=== PATIENT | male | born 2000 | race Caucasian/White ===

== ENCOUNTER 2023-08-14 23:14 | Emergency (ER) | payer BC, SELFPAY ==
[2023-08-14 23:22] VITALS: BP 135/97; PULSE 63; RESP 18; TEMP 36.6; O2SAT 100; BMI 29.3
--- NOTE | 2023-08-14 23:29 | ED.GENADULT ---
HPI - General Adult General Chief complaint: Chest Pain Stated complaint: chest pain Time Seen by Provider: 08/14/23 23:35 History of Present Illness HPI narrative: 1 hour CP, mid chest, denies SOB. pt states he thinks its possibly acid reflux. states took milk of mag at home and no relief. pt states he used to go to ER x2 a year for this stating mix of anxiety and acid reflux. Pt seen [facility] and started on antacid and hasnt been to ER for 2 years. 23-year-old young man presenting to the emergency department concern of chest pain. He says ?I know what it is?. Is quite certain that it is esophageal reflux. Began about an hour prior to arrival in the emergency department. He apparently woke from sleep vomiting and with this pain. On triage denies shortness of breath but when I inquire he has been feeling a little short of breath he. He did try treatment with milk magnesium but this has not helped. He is not really nauseated now. Notes a history of recurrent visits to the emergency department being diagnosed with the combination of anxiety and acid reflux. Ultimately but 2 years ago saw [facility] in initiated on famotidine which he takes twice daily and has been quite helpful. Has not needed an ER visit since. There was discussion apparently of doing an EGD but this was ultimately not done/deferred. Otherwise within usual state of health. Denies a history of cardiovascular disease. He does not drink alcohol. Denies sleep apnea. Denies constipation. Related Data Home Medications Medication Instructions Recorded Confirmed dicyclomine PO 08/14/23 famotidine PO 08/14/23 sertraline .ROUTE 08/14/23 Previous Rx's Medication Instructions Recorded lidocaine HCl 2 % mucosal solution 10 ml PO TID PRN hearburn #100 mL 08/15/23 ondansetron 4 mg disintegrating 4 mg PO DAILY PRN nausea/vomiting 08/15/23 tablet #12 tabs Allergies Allergy/AdvReac Type Severity Reaction Status Date / Time metoclopramide AdvReac Verified 08/14/23 23:55 Review of Systems Status of ROS: Reports: 6 or more systems reviewed and unremarkable except as noted in History and below PFSH PFSH Social History Smoking Status: Never smoker Second hand tobacco smoke exposure: No How often do you have a drink containing alcohol: never AUDIT-C Alcohol total score: 0 Non-prescribed substance use: denies use Exam Narrative: Exam Narrative: Pleasant. Easily conversant. Breathing easily. Oropharynx is unremarkable. No stridor. Heart in regular rate and rhythm. Abdomen is soft with normoactive bowel sounds. Overweight. Quite tender in the epigastrium. No particular tenderness in the right upper quadrant certainly absent Villavicencio's. No tenderness in the left upper abdomen. Eyes are injected. Mildly congested in the nasopharynx. Const: Vital Signs, click to edit/add: Vital Signs - 24 hr 08/14/23 23:22 08/14/23 23:45 08/15/23 00:46 Temperature 97.8 F 98.0 F Pulse Rate [Pulse Oximeter] 63 68 Respiratory Rate 18 18 Blood Pressure [Le ft Upper Arm] 135/97 H 125/84 Pulse Oximetry 100 99 99 Oxygen Delivery Me thod Room Air Room Air 08/15/23 00:47 Temperature 98.0 F Pulse Rate [Pulse Oximeter] 68 Respiratory Rate 18 Blood Pressure [Le ft Upper Arm] 125/84 Pulse Oximetry Oxygen Delivery Me thod Documenting provider has reviewed patient's vital signs: yes Course Vital Signs Vital signs: Initial Vital Signs Respiratory Effort Normal, Spontaneous, Non-Labored 08/14/23 23:15 Respiratory Depth Normal 08/14/23 23:15 Respiratory Pattern Normal 08/14/23 23:15 Vital Signs Temperature 97.8 F 08/14/23 23:22 Pulse Rate 63 08/14/23 23:22 Respiratory Rate 18 08/14/23 23:22 Blood Pressure 135/97 H 08/14/23 23:22 Pulse Oximetry 100 08/14/23 23:22 Oxygen Delivery Method Room Air 08/14/23 23:22 Temperature 98.0 F 08/15/23 00:47 Pulse Rate 68 08/15/23 00:47 Respiratory Rate 18 08/15/23 00:47 Blood Pressure 125/84 08/15/23 00:47 Pulse Oximetry 99 08/15/23 00:46 Oxygen Delivery Method Room Air 08/15/23 00:46 Medications Administered Medications: Discontinued Medications Generic Name Dose Route Start Last Admin Trade Name Freq PRN Reason Stop Dose Admin Lidocaine/Aluminum/Magnesium/Simeth 30 ml 08/14/23 23:35 08/15/23 00:01 Gi Cocktail (Visc Lido/Antacid) 30 Ml PO 08/14/23 23:36 30 ml ONCE ONE Administration Ondansetron HCl 4 mg 08/14/23 23:35 08/14/23 23:46 Ondansetron Odt 4 Mg Tab PO 08/14/23 23:36 4 mg ONCE ONE Administration Medical Decision Making MDM Narrative Medical decision making narrative: Considering age and otherwise lack of comorbidities I do not think it is unreasonable to treat for a presumed esophageal reflux. I have reviewed EKG. This is a normal sinus rhythm. Without ischemic changes. Rate of 61. Pending lack of improvement with this treatment would do further evaluation at this point. I did discuss treating with antiemetic and after initially declining does think perhaps that would be a good idea. Ordered Zofran and hyoscyamine, for any potential benefit for smooth muscle cramping, and a GI cocktail. I informed by nursing that after about 10 minutes after taking dissolveable Zofran was given GI cocktail which was vomited up. Will re-dose and reassess. On reassessment he is sleeping and wakes noting himself markedly improved. We discussed potentially doing further workup particularly cardiovascular but he would prefer not to. I think that is not unreasonable. See patient discharge plan for further discussion ECG Data Attestation: I personally reviewed and interpreted this ECG as follows: (Normal sinus rhythm without ischemic changes at a rate of 61) Discharge Plan Discharge Clinical Impression: Gastroesophageal reflux disease, Acute epigastric pain Patient Disposition: Home w/ Parent or Adult Condition: Improved Additional Instructions: Continue to take your famotidine as prescribed. Might want to go with a sap bw developer diet over the next 24-36 hours. Can try liquid antacid/anti-gas for flares of this same epigastric pain and if necessary can mix with prescribed lidocaine. Return for uncontrolled pain, intractable vomiting, increasing persistent shortness of breath or chest pain. Prescriptions: New lidocaine HCl 2 % solution 10 ml PO TID PRN (Reason: hearburn) Qty: 100 0RF Rx Instructions: to mix with 20ml liquid antacid/antigas ondansetron 4 mg tablet,disintegrating 4 mg PO DAILY PRN (Reason: nausea/vomiting) Qty: 12 0RF No Action famotidine [Acid Web Design Instructor (famotidine)] PO sertraline .ROUTE dicyclomine PO Follow Up/Referrals: Provider,Not a Local [Primary Care Provider] - Stand Alone Forms: [facility] Info Instructions
[2023-08-14 23:45] VITALS: O2SAT 99
[2023-08-14] MEDS: ONDANSETRON ODT 4 MG TAB PO (23:46)
[2023-08-15] MEDS: GI COCKTAIL (VISC LIDO/ANTACID) 30 ML PO (00:01)
[2023-08-15 00:46] VITALS: BP 125/84; PULSE 68; RESP 18; TEMP 36.7; O2SAT 99
[2023-08-15 00:47] VITALS: BP 125/84; PULSE 68; RESP 18; TEMP 36.7
== END 2023-08-15 00:47 | disposition home or self-care (01) ==
PROVIDERS: Emergency Provider Family Medicine
DX: K21.9 Gastro-esophageal reflux disease without esophagitis (principal); R10.13 Epigastric pain
CPT/HCPCS: 93005; 94761; 99284; A9270